=== PATIENT | female | born 1965 | race American Indian/Alaskan Native ===

== ENCOUNTER 2017-06-21 10:18 | Outpatient (CLI) | payer OTHER ==
--- NOTE | 2017-06-21 11:20 | XRay Report ---
RIGHT KNEE, 4 views: History: Right knee pain. The bony architecture is intact without evidence of fracture or dislocation. No significant soft tissue abnormality is seen. IMPRESSION: Normal right knee.
--- NOTE | 2017-06-22 11:14 | Mammography Report ---
BILATERAL DIGITAL SCREENING MAMMOGRAM with CAD: 06/21/17 10:18:00 CLINICAL: Routine screening. COMPARISON:06/20/16 FINDINGS: The breasts are heterogeneously dense, which may obscure small masses. No mass, architectural distortion or suspicious calcifications. IMPRESSION: No mammographic evidence of malignancy. BI-RADS CATEGORY: 1 - - Negative RECOMMENDATION: Routine mammographic screening in one year. COMMENT: Patient follow-up letters are generated by our [employer] application.
== END 2017-06-21 10:19 | disposition home or self-care (01) ==
LOC: SPVWC 10:18
PROVIDERS: ATTEND Family Medicine
DX: Z12.31 Encounter for screening mammogram for malignant neoplasm of breast (principal); M25.561 Pain in right knee; Z80.3 Family history of malignant neoplasm of breast
CPT/HCPCS: 73564; G0202; 77067

== ENCOUNTER 2018-10-06 18:18 | Emergency (ER) | payer OTHER ==
[2018-10-06 18:33] VITALS: BP 170/99
--- NOTE | 2018-10-06 18:41 | Emergency Department Report ---
Blank Doc - Documentation Documentation: pt presents to ed cc of Shoulder pain from pullingon a luggage and think she i njured it she states she has been doing motrin and ice unable to make her flight ACC eval
--- NOTE | 2018-10-06 19:28 | Emergency Department Report ---
ED Upper Extremity Inj HPI - General Chief Complaint: Shoulder Injury Stated Complaint: LFT SHOULDER INJURY/PAIN Time Seen by Provider: 10/06/18 18:24 Source: patient Mode of arrival: Ambulatory Limitations: No Limitations - History of Present Illness Initial Comments: 53-year-old -[place] female presents to the emergency room stating that she fail while. Her luggage down the steps to go to the airport. Patient reports that she hurt her left shoulder. Patient denies hitting her head no loss of consciousness. 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 Patient has no other complaints MD Complaint: Injury to:: left, shoulder -: This afternoon Other Extremity Injury: Shoulder: Left Other Injuries: none Handedness: right Severity scale (0 -10): 8 Improves With: rest Worsens With: movement of extremity Context: fall, direct blow - Related Data Allergies Allergy/AdvReac Type Severity Reaction Status Date / Time No Known Allergies Allergy Unverified 10/06/18 18:21 ED Review of Systems ROS: Stated complaint: LFT SHOULDER INJURY/PAIN Other details as noted in HPI Comment: All other systems reviewed and negative ED Past Medical Hx - Past Medical History Previous Medical History?: No - Surgical History Past Surgical History?: No - Social History Smoking Status: Never Smoker Substance Use Type: None ED Physical Exam - General Limitations: No Limitations General appearance: alert, in no apparent distress - Head Head exam: Present: atraumatic, normocephalic ED Course Vital Signs 10/06/18 18:31 Temperature 98.6 F Pulse Rate 89 Respiratory 18 Rate Blood Pressure 170/99 O2 Sat by Pulse 96 Oximetry Critical care attestation.: If time is entered above; I have spent that time in minutes in the direct care of this critically ill patient, excluding procedure time. ED Disposition Clinical Impression: Left shoulder strain, Fall Disposition: DC-01 TO HOME OR SELFCARE Is pt being admited?: No Does the pt Need Aspirin: No Condition: Stable Instructions: Fall Prevention (ED), Rotator Cuff Injury (ED) Additional Instructions: Please use ice on shoulder. [id number] Tylenol or Motrin for pain relief. Follow-up with your primary care provider or orthopedist if his symptoms persist or gets worse. Forms: Work/School Release Form(ED)
== END 2018-10-06 19:59 | disposition home or self-care (01) ==
LOC: ED 18:18
DX: S46.912A Strain of unspecified muscle, fascia and tendon at shoulder and upper arm level, left arm, initial encounter (principal); W17.89XA Other fall from one level to another, initial encounter; Y93.89 Activity, other specified; Y92.89 Other specified places as the place of occurrence of the external cause; Y99.8 Other external cause status
CPT/HCPCS: 99282